=== PATIENT | female | born 1995 ===

== ENCOUNTER 2020-07-24 20:00 | Emergency (ER) | payer SELFPAY ==
[~2020-07-24] VITALS: Ht 152.4 cm; Wt 54.7 kg
[2020-07-24] MEDS ORDERED: DEXAMETHASONE 4 MG TABLET PO ONE (21:30)
[2020-07-24] MEDS ORDERED: PROMETHAZINE/COD. 10MG/6.25MG/5 ML ORAL SOL PO ONE (21:30)
[2020-07-24] MEDS ORDERED: PLEASE ENTER ALLERGIES MC SCH (21:30)
--- NOTE | 2020-07-24 21:40 | NUR ---
assumed care of pt. pt here for cough and suspected fever. pt reports that she has a remote hx of bronchitis. denies smoking but reports that she is around smoke a lot. no resp. distress. sitting up on gurney watching TV no family at bedside
--- NOTE | 2020-07-24 21:53 | NUR ---
pt updated on POC and made aware that she cannot drive after phenergan with codeine. pt verbalized understanding and reports that her mother is waiting outside to drive her home
[2020-07-24] MEDS ORDERED: DEXAMETHASONE 4 MG TABLET ONE (22:25)
[2020-07-24 22:40] VITALS: BP 105/60
== END 2020-07-24 23:07 | disposition home or self-care (01) ==
LOC: ED 22:16
DX: R06.00 Dyspnea, unspecified (principal); R05 Cough; R06.02 Shortness of breath; R07.89 Other chest pain
CPT/HCPCS: 71045; 99283